=== PATIENT | female | born 1985 | race Caucasian/White ===

== ENCOUNTER 2023-12-24 00:59 | Emergency (ER) | payer SELFPAY ==
[~2023-12-24] VITALS: Ht 157.5 cm; Wt 70.3 kg
[2023-12-24 01:15] VITALS: BP 140/91; PULSE 77; RESP 18; TEMP 97.7; O2SAT 100
[2023-12-24 01:18] VITALS: O2SAT 99
[2023-12-24 02:49] LABS: APPEARANCE,URINE HAZY (CLEAR); BILIRUBIN,URINE NEGATIVE (NEGATIVE); BLOOD, URINE 3+ (NEGATIVE); COLOR,URINE YELLOW (YELLOW); LEUKOCYTE ESTERASE ,URINE NEGATIVE (NEGATIVE); NITRITE, URINE NEGATIVE (NEGATIVE); PH,URINE 5.5 (5.0-9.0); PROTEIN,URINE 2+ (NEGATIVE); UGLUCOSE NEGATIVE (NEGATIVE)
[2023-12-24 02:57] LABS: BACTERIA,URINE 1+ /HPF (None Seen); RBC,URINE >100 /HPF (0-5); WBC,URINE 0-5 /HPF (0-5)
[2023-12-24 02:58] LABS: CALCIUM OXALATE CRYSTALS,UR 0-10 /HPF (None Seen); MUCUS,URINE 2+ /LPF (None Seen); SQUAMOUS EPITHELIAL CELL,UR 4-10 (MOD) /LPF (0-3 (FEW))
[2023-12-24] MEDS ORDERED: cefTRIAXone 1,000 MG VIAL ONE (03:29)
[2023-12-24 03:36] LABS: BASOPHILS % (AUTO) 0.2 % (0.0-2.0); EOSINOPHILS % (AUTO) 0.1 % (0.0-4.0); HEMATOCRIT 42.6 % (36-48); HEMOGLOBIN 14.6 g/dL (12.0-16.0); LYMPHOCYTES # (AUTO) 1.9 K/uL (2.5-16.5); LYMPHOCYTES % (AUTO) 13.9 % (20.5-51.1); MEAN CORPUSCULAR HEMOGLOBIN 30 pg (27-31); MEAN CORPUSCULAR HGB CONC 34 g/dL (33-37); MEAN CORPUSCULAR VOLUME 86.6 fL (80-94); MONOCYTES # (AUTO) 0.4 K/uL (0.8-1.0); MONOCYTES % (AUTO) 2.6 % (1.7-9.3); NEUTROPHILS # (AUTO) 11.3 K/uL (1.8-7.7); NEUTROPHILS % (AUTO) 83.2 % (42.2-75.2); PLATELET COUNT (AUTO) 318 K/uL (140-450); RED BLOOD CELL COUNT(AUTO) 4.92 MIL/uL (4.20-5.40); RED CELL DISTRIBUTION WIDTH 12.8 % (11.6-13.7); WHITE BLOOD COUNT (AUTO) 13.6 K/uL (4.8-10.8)
[2023-12-24] MEDS: NACL 0.9% 1,000 ML IV SCH (03:37)
[2023-12-24] MEDS: KETOROLAC 30 MG/ML VIAL IVP ONE (03:54)
[2023-12-24 03:59] LABS: ANION GAP 14.6 (8-16); CALCIUM 9.3 mg/dL (8.5-10.1); CREATININE 0.6 mg/dL (0.6-1.3); POTASSIUM 3.6 mmol/L (3.5-5.1)
[2023-12-24 04:03] LABS: BILIRUBIN,DIRECT 0.1 mg/dL (0.0-0.3); TOTAL BILIRUBIN 0.5 mg/dL (0.0-1.0); TOTAL PROTEIN, SERUM 7.9 g/dL (6.4-8.2)
[2023-12-24 06:17] VITALS: BP 117/78; PULSE 98; RESP 18; TEMP 97.8; O2SAT 97
== END 2023-12-24 06:17 | disposition home or self-care (01) ==
LOC: MED 00:59
DX: R10.30 Lower abdominal pain, unspecified (principal); R11.2 Nausea with vomiting, unspecified
CPT/HCPCS: 36415; 74176; 80048; 80076; 81001; 81025; 85025; 87040; 96365; 96375; 99285; J0696; J1885; J7030